=== PATIENT | female | born 1985 | race Asian ===

== ENCOUNTER 2019-02-11 07:47 | Outpatient (CLI) | payer OTHER ==
[2019-02-11 08:18] LABS: HEMATOCRIT 27.8 % (41.0-60); HEMOGLOBIN 8.6 gm/dL (12-16); MEAN CORPUSCULAR HGB CONC 30.9 pg (28.0-36.0); MEAN PLATELET VOLUME 6.5 fl; PLATELET COUNT 483 Th/cmm (150-400); RED BLOOD COUNT 4.75 Mil/cmm (3.80-5.10); RED CELL DISTRIBUTION WIDTH 17.7 % (11.5-20.0); WHITE BLOOD COUNT 6.1 Th/cmm (4.8-10.8)
[2019-02-11 08:44] LABS: ALBUMIN 4.3 gm/dL (3.7-5.3); ALKALINE PHOSPHATASE 40 U/L (34-104); ANION GAP 12.5 (7.0-16.0); BILIRUBIN,TOTAL 0.4 mg/dL (0.3-1.0); BUN - UREA NITROGEN 14 mg/dL (7-25); CALCIUM SERUM 9.2 mg/dL (8.6-10.3); CARBON DIOXIDE 22.6 mEq/L (21.0-31.0); CHLORIDE 105 mEq/L (98-107); CHOLESTEROL 182 mg/dL (<200); CREATININE - SERUM 0.9 mg/dL (0.6-1.2); GFR AFRICAN-AMERICAN > 60.0 ml/min (>90); GFR NON AFRICAN-AMERICAN > 60.0 ml/min; GLUCOSE 104 mg/dL (70-105); HDL -HIGH DENSITY LIPOPROTEIN 40 mg/dL (23-92); POTASSIUM SERUM 4.1 mEq/L (3.5-5.1); SGOT 20 U/L (13-39); SGPT/ALT 17 U/L (7-52); SODIUM SERUM 136 mEq/L (136-145); TRIGLYCERIDES 170 mg/dL (<150)
[2019-02-11 10:34] LABS: BAND NEUTROPHILE 0 % (0-10); LYMPHOCYTE 26 % (20-50)
[2019-02-11 10:35] LABS: BASOPHIL 1 % (0-3); EOSINOPHIL 2 % (0-5); MONOCYTE 9 % (2-10); NEUTROPHILS 62 % (40-80); PLATELET ESTIMATE ADEQUATE (NORMAL)
[2019-02-11 10:38] LABS: MEAN CELL VOLUME 58.4 fl (81-100); MEAN CORPUSCULAR HEMOGLOBIN 18.1 pg (27.0-31.0)
[2019-02-11 12:56] LABS: ALB/GLOB RATIO 1.3 (1.0-1.8); TOTAL PROTEIN,SERUM 7.7 gm/dL (6.0-8.3)
[2019-02-12 11:07] LABS: FERRITIN 3 ng/mL (15-150); IRON LC 17 ug/dL (27-159); TIBC (LC) 503 ug/dL (250-450); UIBC 486 ug/dL (131-425)
[2019-02-14 08:05] LABS: FOLIC ACID 10.3 ng/mL (>3.0)
== END 2019-02-11 08:13 | disposition home or self-care (01) ==
LOC: EEVIPCON 07:47 → LAB 07:47
PROVIDERS: ATTEND Internal Medicine
DX: E78.5 Hyperlipidemia, unspecified (principal); D64.9 Anemia, unspecified; R53.1 Weakness
CPT/HCPCS: 36415-UA; 80053-TC; 80061-TC; 82607-90; 82728-90; 82746-90; 83540-90; 83550-90; 84436-TC; 84443-TC; 84480-90; 85007-TC; 85025-TC